=== PATIENT | male | born 1995 | race Caucasian/White ===

== ENCOUNTER 2025-02-11 14:29 | Emergency (ER) | payer OTHER ==
[~2025-02-11] VITALS: Ht 165.1 cm; Wt 67.0 kg
[2025-02-11 14:41] VITALS: O2SAT 99
[2025-02-11] MEDS ORDERED: DIPHENHYDRAMINE 50MG/ML VIAL IM ONE (14:45)
[2025-02-11] MEDS ORDERED: HALOPERIDOL LACTATE 5MG/ML VIAL IM ONE (14:45)
[2025-02-11] MEDS: LORAZEPAM 2MG/ML UD SYRINGE IM SCH (15:09)
[2025-02-11] MEDS: HALOPERIDOL LACTATE 5MG/ML VIAL IM SCH (15:10)
[2025-02-11] MEDS: DIPHENHYDRAMINE 50MG/ML VIAL IM SCH (15:10)
[2025-02-11 16:14] LABS: BASOPHILS % 0.4 % (0.0-2.0); EOSINOPHILS % 0.1 % (0.0-5.0); HEMATOCRIT. 39.8 % (42.0-52.0); HEMOGLOBIN. 13.4 g/dL (14.0-18.0); LYMPHOCYTES % 9.7 % (20.0-50.0); MEAN PLATELET VOLUME 8.8 fl (7.4-10.4); MONOCYTES % 7.3 % (2.0-8.0); NEUTROPHILS % 82.5 % (40.0-76.0); PLATELET 246 x1000/uL (130-400); RED BLOOD CELL COUNT 4.56 mill/uL (4.7-6.1); RED CELL DISTRIBUTION WIDTH 15.1 % (11.6-14.6)
[2025-02-11 16:27] LABS: CREATININE 1.1 mg/dL (0.6-1.3); UREA NITROGEN BLOOD 19 mg/dL (9-23)
[2025-02-11 16:29] LABS: ASPARTATE AMINOTRANSFERASE 27 IU/L (<34); BILIRUBIN DIRECT 0.6 mg/dL (<=3.0); BILIRUBIN TOTAL 1.7 mg/dL (0.1-1.0)
[2025-02-11 16:30] LABS: PROTEIN TOTAL 7.2 g/dL (6.0-8.3)
[2025-02-11] MEDS: MAGNESIUM OXIDE 400MG TABLET PO ONE (21:30)
[2025-02-11] MEDS: POTASSIUM CHLORIDE 20MEQ TABLET SR PO ONE (21:30)
[2025-02-11 22:51] LABS: *AMPHETAMINES SCREEN URINE PRESUMPTIVE POSITIVE (NEGATIVE); *BARBITURATES SCREEN URINE NEGATIVE (NEGATIVE); *BENZODIAZEPINES SCREEN URINE NEGATIVE (NEGATIVE); *COCAINE SCREEN URINE PRESUMPTIVE POSITIVE (NEGATIVE); CANNABINOID URINE SCREEN NEGATIVE (NEGATIVE); ECSTASY MDMA SCREEN URINE CONF.TEST INDICATED (NEGATIVE); METHADONE URINE SCREEN NEGATIVE (NEGATIVE); OPIATES URINE SCREEN NEGATIVE (NEGATIVE); PHENCYCLIDINE URINE SCREEN NEGATIVE (NEGATIVE)
[2025-02-12 04:00] VITALS: BP 152/99; PULSE 115; RESP 18; TEMP 36.7; O2SAT 99
[2025-02-12 04:55] LABS: CREATININE 1.0 mg/dL (0.6-1.3)
[2025-02-12 04:56] LABS: UREA NITROGEN BLOOD 18 mg/dL (9-23)
== END 2025-02-12 06:27 | disposition home or self-care (01) ==
LOC: ER 14:29
DX: R41.82 Altered mental status, unspecified (principal); F22 Delusional disorders; E87.6 Hypokalemia; F41.9 Anxiety disorder, unspecified; F19.129 Other psychoactive substance abuse with intoxication, unspecified; Z20.822 Contact with and (suspected) exposure to COVID-19; Z79.899 Other long term (current) drug therapy
CPT/HCPCS: 80076; 80305; 80048 ×2; 80307; 80329; 80320; 85025; 36415 ×2; 96372; 99285; 87426; 83735; J1200; J1630; J2060; Z7610; G0480